=== PATIENT | female | born 1990 ===

== ENCOUNTER 2017-06-04 21:02 | Emergency (ER) | payer MEDICAID, OTHER ==
[2017-06-04 21:22] VITALS: BP 158/92; PULSE 76; RESP 16; TEMP 98.5; O2SAT 99
--- NOTE | 2017-06-04 21:42 | ED PDOC ---
Arrival/HPI - General Chief Complaint: Upper Extremity Problem/Injury Time Seen by Provider: 06/04/17 21:21 Historian: Patient - History of Present Illness Narrative History of Present Illness (Text): 06/04/17 21:30 Madina Stevenson is a 26 year old female who presents to the emergency department complaining of an area of redness and swelling with associated itching to right upper arm for a few days. Patient suspects that she may have been bitten by a bug or a "stung by a spider" but is unsure. Patient denies any history of trauma , fevers, chills, shortness of breath, or any other complaints at this time. Time/Duration: < week Symptom Onset: Gradual Symptom Course: Unchanged Severity Level: Mild Activities at Onset: Light Context: Home Past Medical History - Provider Review Nursing Documentation Reviewed: Yes - Infectious Disease Hx of Infectious Diseases: None - Pulmonary Hx Asthma: Yes - Psychiatric Hx Substance Use: No Family/Social History - Physician Review Nursing Documentation Reviewed: Yes Family/Social History: No Known Family HX Smoking Status: Never Smoked Hx Alcohol Use: No Hx Substance Use: No Allergies/Home Meds Allergies/Adverse Reactions: Allergies No Known Allergies Allergy (Verified 06/04/17 21:22) Home Medications: Home Meds Medication Instructions Recorded Confirmed Fluticasone/Salmeterol 100/50 1 puff PO DAILY PRN 06/04/17 06/04/17 [Advair Diskus 100/50] Review of Systems - Physician Review All systems were reviewed & negative as marked: Yes - Review of Systems Constitutional: absent: Fevers, Night Sweats Eyes: absent: Vision Changes ENT: absent: Hearing Changes Respiratory: absent: SOB, Cough Cardiovascular: absent: Chest Pain Gastrointestinal: absent: Abdominal Pain Genitourinary Female: absent: Dysuria, Frequency Musculoskeletal: absent: Arthralgias Skin: Other (area of redness and swelling to right upper arm) Neurological: absent: Headache, Dizziness Endocrine: absent: Diaphoresis Hemo/Lymphatic: absent: Adenopathy Psychiatric: absent: Anxiety, Depression Physical Exam Vital Signs Reviewed: Yes Vital Signs Temp Pulse Resp BP Pulse Ox 06/04/17 21:20 98.5 F 76 16 158/92 H 99 Temperature: Afebrile Blood Pressure: Hypertensive Pulse: Regular Respiratory Rate: Normal Appearance: Positive for: Well-Appearing, Non-Toxic, Comfortable Pain Distress: None Mental Status: Positive for: Alert and Oriented X 3 - Systems Exam Head: Present: Atraumatic, Normocephalic Pupils: Present: PERRL Extroacular Muscles: Present: EOMI Conjunctiva: Present: Normal Mouth: Present: Moist Mucous Membranes Neck: Present: Normal Range of Motion Respiratory/Chest: Present: Clear to Auscultation, Good Air Exchange. No: Respiratory Distress, Accessory Muscle Use Cardiovascular: Present: Regular Rate and Rhythm Abdomen: Present: Normal Bowel Sounds. No: Tenderness, Distention, Peritoneal Signs Upper Extremity: Present: Swelling (minimal soft tissue swelling to the distal right upper arm above elbow area), Erythema (to distal right upper arm above the elbow area), Neurovascularly Intact, Other (No evidence of puncture wounds to area). No: Tenderness (no palpable tenderness) Lower Extremity: Present: Normal Inspection. No: Edema Neurological: Present: GCS=15, CN II-XII Intact, Speech Normal Psychiatric: Present: Alert, Oriented x 3, Normal Insight, Normal Concentration Medical Decision Making ED Course and Treatment: 06/04/17 21:56 Impression: 26 year old female complaining of an area of redness and swelling to right upper arm for a few days. Differential Diagnosis included but are not limited to: localized allergic reaction vs. superficial cellulitis Plan: -- Benadryl, Keflex, Motrin, Prednisone -- Reassess and disposition Progress Notes: - Medication Orders Current Medication Orders: Discontinued Medications Cephalexin Monohydrate (Keflex) 500 mg PO ONCE STA PRN Reason: Protocol Stop: 06/04/17 21:32 Last Admin: 06/04/17 21:45 Dose: 500 mg Diphenhydramine HCl (Benadryl) 50 mg PO ONCE STA Stop: 06/04/17 21:32 Last Admin: 06/04/17 21:45 Dose: 50 mg Ibuprofen (Motrin Tab) 800 mg PO STAT STA Stop: 06/04/17 21:32 Last Admin: 06/04/17 21:45 Dose: 800 mg Prednisone (Prednisone Tab) 60 mg PO ONCE STA Stop: 06/04/17 21:32 Last Admin: 06/04/17 21:45 Dose: 60 mg - Scribe Statement The provider has reviewed the documentation as recorded by the Renataibjazzmine Pena All medical record entries made by the Scribe were at my direction and personally dictated by me. I have reviewed the chart and agree that the record accurately reflects my personal performance of the history, physical exam, medical decision making, and the department course for this patient. I have also personally directed, reviewed, and agree with the discharge instructions and disposition. Disposition/Present on Arrival - Present on Arrival Any Indicators Present on Arrival: No History of DVT/PE: No History of Uncontrolled Diabetes: No Urinary Catheter: No History of Decub. Ulcer: No History Surgical Site Infection Following: None - Disposition Have Diagnosis and Disposition been Completed?: Yes Diagnosis: Allergic reaction, Cellulitis Disposition: HOME/ ROUTINE Disposition Time: 21:43 Patient Plan: Discharge Condition: GOOD Discharge Instructions (ExitCare): Cellulitis (ED), Insect Bite or Sting (ED) Additional Instructions: Take meds as prescribed/follow up with your doctor this week/if any worsening symptoms(fever/increased redness/swelling,ecc.)return to the emergency room Prescriptions: DiphenhydrAMINE [Benadryl] 50 mg PO Q6 PRN #24 cap PRN Reason: Itching / Pruritus Cephalexin [cephalexin] 500 mg PO BID #14 cap Ibuprofen [Motrin] 600 mg PO Q6 PRN #16 tab PRN Reason: Pain, Moderate (4-7) predniSONE [Prednisone] 60 mg PO DAILY #15 tab Forms: Postmaster (Tongan)
== END 2017-06-04 21:54 | disposition home or self-care (01) ==
LOC: ED 21:02
DX: T78.40XA Allergy, unspecified, initial encounter (principal); L03.113 Cellulitis of right upper limb